=== PATIENT | female | born 1970 | race African-American/Black ===

== ENCOUNTER 2023-11-25 10:36 | Emergency (ER) | payer MEDICAID ==
[2023-11-25 10:57] VITALS: O2SAT 98
--- NOTE | 2023-11-25 11:23 | ED Physician Documentation ---
PD HPI BACK PAIN - Stated complaint Stated Complaint: LOWER BACK PX - Chief complaint Chief Complaint: Back Pain - History obtained from History obtained from: Patient - History of Present Illness Timing - onset: How many days ago (3) PD PAST MEDICAL HISTORY - Past Medical History Past Medical History: No - Past Surgical History Past Surgical History: Yes - Allergies Allergies/Adverse Reactions: Allergies Allergy/AdvReac Type Severity Reaction Status Date / Time No Known Drug Allergies Allergy Verified 11/25/23 10:38 - Social History Does the pt smoke?: No Smoking Status: Never smoker Results - Vitals Vitals: Vital Signs - 24 hr 11/25/23 10:38 Temperature 36.7 C Heart Rate 65 Respiratory 18 Rate Blood Pressure 136/82 H O2 Saturation 98
--- NOTE | 2023-11-25 11:29 | ED Physician Documentation ---
PD HPI BACK PAIN - Stated complaint Stated Complaint: LOWER BACK PX - Chief complaint Chief Complaint: Back Pain - History obtained from History obtained from: Patient - Additional information Additional information: 3 days of low back pain without injury. She has had troubles with her low back before. It is in the low back and radiates to both legs, left worse than right. No weakness, numbness, tingling, saddle anesthesia, fevers, incontinence. States that with prior episodes of similar hydrocodone was helpful. She is been trying ibuprofen without relief. PD PAST MEDICAL HISTORY - Past Medical History Past Medical History: No - Past Surgical History Past Surgical History: Yes - Present Medications Home Medications: Ambulatory Orders Medication Instructions Recorded Confirmed Cyclobenzaprine [Flexeril] 10 mg PO TID PRN #20 tablet 11/25/23 HYDROcod/ACETAM 5/325 [Baxter 5/325] 1 - 2 tab PO Q6H PRN #15 tablet 11/25/23 - Allergies Allergies/Adverse Reactions: Allergies Allergy/AdvReac Type Severity Reaction Status Date / Time No Known Drug Allergies Allergy Verified 11/25/23 10:38 - Social History Does the pt smoke?: No Smoking Status: Never smoker PD ED PE NORMAL - Vitals Vital signs reviewed: Yes - General General: Alert and oriented X 3, No acute distress - Abdomen Abdomen: Normal bowel sounds, Soft, Non tender - Back Back: Other (Diffuse muscular tenderness to the low back, winces with motion.) - Extremities Extremities: Other (The patient has equal and normal Achilles and patellar reflexes bilaterally. Normal sensation in all areas of the legs. Patient denies saddle anesthesia. Normal strength in flexion-extension at the ankles, knees, and flexion of the hips.) Results - Vitals Vitals: Vital Signs - 24 hr 11/25/23 10:38 Temperature 36.7 C Heart Rate 65 Respiratory 18 Rate Blood Pressure 136/82 H O2 Saturation 98 PD Medical Decision Making - ED course ED course: This patient has seemingly uncomplicated musculoskeletal back pain. The patient has no "red flags." Specifically denies IV drug use, fevers, incontinence, saddle anesthesia. Spinal epidural abscess was considered, given that the patient has no fever, is not diabetic, has no spinal tenderness, does not use IV drugs, and has no bilateral neurologic symptoms, the diagnosis of spinal epidural abscess is considered exceedingly unlikely. Departure - Departure Disposition: 01 Home, Self Care Clinical Impression: Back pain Condition: Good Record reviewed to determine appropriate education?: Yes Instructions: ED Neck Back Pain General Prescriptions: Cyclobenzaprine [Flexeril] 10 mg PO TID PRN #20 tablet PRN Reason: Spasms HYDROcod/ACETAM 5/325 [Baxter 5/325] 1 - 2 tab PO Q6H PRN #15 tablet PRN Reason: Pain Comments: I [facility] [place]. As discussed, does not seem like a dangerous cause of back pain but return if you develop numbness around your groin, fevers, or trouble with bowel or bladder function. Call your doctor to arrange a follow-up appointment, make the next available appointment. In the interim, return anytime if worse or if new symptoms develop. I am prescribing a short course of narcotic pain medication for you. These are potentially dangerous and addictive medications that should be used carefully. These medications may constipate you. Take an wunq-lol-sklmoph stool softener (docusate) twice daily with plenty of water while taking these medications. If you go 24 hours without a bowel movement, take mauz-fjg-giqkrta miralax, per package instructions. Do not drink or drive while taking these medications. If you received narcotic or sedating medications while in the emergency department, do not drive for 24 hours. Store this medication in a safe, secure place and out of reach of children. It is a violation of federal law to give or sell this medication to another person or to use in a manner other than prescribed. The ED will not refill narcotic prescriptions, including prescriptions lost or stolen. To dispose of unwanted medications: 1. [facility] a [facility] for medication in pill form only (no liquids) 8:00 am to 4:30 p.m. Thursday-Thursday in the lobby of the [facility], [address] [place] [address]. Empty pills into ziplock bag before disposal. Call [phone] for information. 2.[email or web address] is a free service available to all [facility] residents. Go to [email or web address] Note that many narcotic pain relievers also contain Tylenol/acetaminophen. Please ensure that your total dose of acetaminophen from all sources does not exceed 3 g (3000 mg) per day. Forms: Activity restrictions
[2023-11-25 11:42] VITALS: BP 136/87
== END 2023-11-25 11:36 | disposition home or self-care (01) ==
LOC: ED 10:36
DX: M54.50 Low back pain, unspecified (principal)
CPT/HCPCS: 99282; 99283